=== PATIENT | female | born 1955 | race Native Hawaiian/Other Pacific Islander ===

== ENCOUNTER 2017-12-20 14:16 | Observation (INO) | payer OTHER ==
[~2017-12-20] VITALS: Ht 162.6 cm; Wt 78.9 kg
[2017-12-20] MEDS ORDERED: OMEPRAZOLE20 M2 OR (14:17)
[2017-12-20] MEDS ORDERED: BUDE1AER5 INH (14:17)
[2017-12-20] MEDS ORDERED: GABA300C2 PO (14:18)
[2017-12-20] MEDS ORDERED: ESCITALOPRAM10 MG PO (14:26)
[2017-12-20] MEDS ORDERED: LEFLUNOMIDE20 MG (14:26)
[2017-12-20] MEDS ORDERED: ZANTAC300 MG PO (14:27)
[2017-12-20] MEDS ORDERED: PREDNISONE5 MG OR (14:27)
[2017-12-20] MEDS ORDERED: ONDA4TAB3 PO (14:28)
[2017-12-20] MEDS ORDERED: TRAM50TA PO (14:28)
[2017-12-20 14:29] VITALS: BP 145/75; TEMP 97
[2017-12-20 14:46] LABS: PLATELET COUNT 240 K/uL (152-353)
[2017-12-20 18:11] VITALS: BP 158/89; TEMP 98.1; Ht 162.6 cm; Wt 78.9 kg
[2017-12-20] MEDS ORDERED: SPIRIVA RE1.25 MCG/A IN (18:19)
[2017-12-20 20:00] VITALS: BP 138/81; TEMP 97.9
[2017-12-20 23:51] VITALS: BP 133/84; TEMP 98
[2017-12-21 04:00] VITALS: BP 135/76; TEMP 98.6
[2017-12-21 05:42] LABS: PLATELET COUNT 234 K/uL (152-353)
[2017-12-21 05:56] LABS: POTASSIUM 3.8 mmol/L (3.6-5.2)
[2017-12-21 08:00] VITALS: BP 115/76; TEMP 98.8
== END 2017-12-21 12:25 | disposition home or self-care (01) ==
LOC: EDBD 14:16 → ED 14:16 → MED/SURG 15:00
PROVIDERS: ADMIT Family Medicine
DX: J44.1 Chronic obstructive pulmonary disease with (acute) exacerbation (principal); E11.9 Type 2 diabetes mellitus without complications; J84.10 Pulmonary fibrosis, unspecified
CPT/HCPCS: 36415; 36600; 80048; 82805; 82948; 85027; 94640; 94760; 96372; 96374; 99220; 99284; G0378; J1650; J2405; J2930